=== PATIENT | male | born 1935 | race Caucasian/White ===

== ENCOUNTER 2025-05-07 07:57 | Outpatient (CLI) | payer MEDICARE, OTHER ==
[2025-05-07] MEDS ORDERED: Iopamidol 370 76% 100 ML VIAL ONE (09:20)
== END 2025-05-07 07:58 | disposition home or self-care (01) ==
LOC: CT 07:57
PROVIDERS: ATTEND Internal Medicine
DX: C61 Malignant neoplasm of prostate (principal); C79.51 Secondary malignant neoplasm of bone; N20.0 Calculus of kidney; N28.89 Other specified disorders of kidney and ureter; N28.1 Cyst of kidney, acquired; N13.30 Unspecified hydronephrosis; Z79.899 Other long term (current) drug therapy
CPT/HCPCS: 71260; 74177; 78306; A9503; Q9967